=== PATIENT | female | born 1985 | race Caucasian/White ===

== ENCOUNTER 2016-09-16 16:51 | Emergency (ER) | payer OTHER ==
[~2016-09-16] VITALS: Ht 170.2 cm; Wt 84.0 kg
[~2016-09-16 16:51] MED LIST: LORA-392 PO
[2016-09-16 16:53] VITALS: BP 135/72; PULSE 58; RESP 16; TEMP 97.8; O2SAT 98
[2016-09-16] MEDS ORDERED: ZOLO50TA PO (17:09)
--- NOTE | 2016-09-16 17:10 | PD ---
HPI Chief Complaint: Laceration/Skin Injury Time Seen by Provider: 17:00 Travel History International Travel<30 days: No Contact w/Intl Traveler<30days: No Traveled to known affect area: No History of Present Illness HPI 31-year-old female presents emergency department for evaluation of a laceration to her right fifth digit. She reports that prior to arrival she was cleaning out the inside of her stove when the glass door broke causing a laceration to her right fifth digit dorsal aspect. She has full range of motion and normal sensation of the digit. She has pain localized just at the site of the laceration. Bleeding well controlled. Tetanus immunization up-to-date. PFS Past Medical History Medical History: Denies Significant Hx Hx Anticoagulant Therapy: No Diabetes: No Diminished Hearing: No Immunizations Current: Yes ?: Not Past Surgical History Section: Yes Social History Alcohol Use: Yes (Occ) Tobacco Use: No Substance Use: No Allergies-Medications (Allergen,Severity, Reaction): Coded Allergies: No Known Allergies (Unverified , 09/16/16) Reported Meds & Prescriptions Reported Meds & Active Scripts Active Ativan (Lorazepam) 0.5 Mg Tab 0.5 Mg PO Q8H PRN Reported Zoloft (Sertraline HCl) 50 Mg Tab 50 Mg PO DAILY Review of Systems Except as stated in HPI: all other systems reviewed are Neg Physical Exam Narrative GENERAL: Well-nourished, well-developed patient. SKIN: Focused skin assessment warm/dry. HEAD: Normocephalic. EYES: No scleral icterus. No injection or drainage. NECK: Supple, trachea midline. No JVD or lymphadenopathy. CARDIOVASCULAR: Regular rate and rhythm without murmurs, gallops, or rubs. RESPIRATORY: Breath sounds equal bilaterally. No accessory muscle use. GASTROINTESTINAL: Abdomen soft, non-tender, nondistended. MUSCULOSKELETAL: No cyanosis, or edema. EXTREMITY: 0.5 cm laceration right fifth digit dorsal aspect. No tendon injury. Patient has full range of motion against resistance. Normal sensation. Brisk cap refill. No foreign body visualized. BACK: Nontender without obvious deformity. No CVA tenderness. Data Data Last Documented VS Vital Signs Date Time Temp Pulse Resp B/P Pulse Ox O2 Delivery O2 Flow Rate FiO2 09/16/16 16:53 97.8 58 16 135/72 98 Orders Finger ([id number]) (6/8/17 ) [facility] Medical Decision Making Medical Screen Exam Complete: Yes Emergency Medical Condition: Yes Differential Diagnosis Finger laceration, unlikely tendon injury, unlikely retained foreign body Narrative Course 31-year-old female presents emergency department for evaluation of laceration right fifth digit caused by glass. No tendon injury suspected. Patient has full range of motion SENSATION of the digit. Tetanus status up-to-date. X-ray pending. Procedures Procedure Narrative LACERATION LOCATION: Right fifth digit LENGTH: 0.5 cm NUMBER OF STITCHES/LEIDY: One REPAIR: The area of the laceration was prepped with Betadine and sterilely draped. The laceration was infiltrated with 1% lidocaine. The wound was copiously irrigated and explored without evidence of foreign body, tendon injury or neurovascular injury. The wound was closed using 4-0 proline. This was a single layer repair. A sterile dressing was applied. The patient was advised to keep the dressing clean and dry. Patient tolerated the procedure well. Diagnosis Primary Impression: Finger laceration Qualified Code: S61.219A - Finger laceration, initial encounter Referrals: Primary Care Physician Patient Instructions: Finger Laceration (ED), General Instructions Additional Instructions: Sutures need to be removed in 7-10 days. Do not submerge the wound in water. Return to the emergency department if he develops increasing pain, redness, drainage from the site. Disposition: 01 DISCHARGE HOME Condition: Stable Yanira Caldera Sep 16, 2016 17:10
--- NOTE | 2016-09-16 17:36 | RADHPO ---
EXAM DATE/TIME: 09/16/2016 17:15 [place] COMPARISON: No previous studies available for comparison. INDICATIONS : Patient cut finger on cooking dish tonight. MEDICAL HISTORY : None. SURGICAL HISTORY : None. ENCOUNTER: Initial ACUITY: 1 day PAIN SCORE: 5/10 LOCATION: Right Hand, Fifth digit. FINDINGS: Examination of the fifth digit of the right hand demonstrates no evidence of fracture or dislocation. No radiopaque foreign bodies are seen. The soft tissues are intact. CONCLUSION: The osseous structures are grossly intact. No radiopaque foreign bodies. Vega Villeda MD on September 16, 2016 at 17:33 Board Certified Radiologist. This report was verified electronically.
== END 2016-09-16 18:21 | disposition home or self-care (01) ==
LOC: PHEFT 16:51
DX: S61.219A Laceration without foreign body of unspecified finger without damage to nail, initial encounter (principal); W25.XXXA Contact with sharp glass, initial encounter; Y92.000 Kitchen of unspecified non-institutional (private) residence as the place of occurrence of the external cause
CPT/HCPCS: 12001; 73140